=== PATIENT | female | born 2000 | race Caucasian/White ===

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

== ENCOUNTER 2019-01-13 08:09 | Emergency (ER) | payer OTHER ==
[~2019-01-13] VITALS: Ht 162.6 cm; Wt 68.9 kg
[2019-01-13 08:36] VITALS: Ht 162.6 cm; Wt 68.9 kg
[2019-01-13 10:38] LABS: BASOPHIL % 0.2 % (0-2); PLATELET COUNT 247 x10^3mcL (130-400); RED CELL DISTRIBUTION WIDTH 13.6 % (11.5-14.5)
[2019-01-13 12:11] LABS: CARBON DIOXIDE 26.2 mmol/L (21-32); CHLORIDE SERUM 103 mmol/L (98-107); CREATININE SERUM 0.8 mg/dL (0.6-1.0); GFR1 > 60 mL/min; GLUCOSE SERUM 97 mg/dL (74-106); POTASSIUM SERUM 3.4 mmol/L (3.5-5.1); SODIUM SERUM 139 mmol/L (136-145)
[2019-01-13 12:12] LABS: ALKALINE PHOSPHATASE 86 U/L (46-116); ALT/SGPT 20 U/L (14-59); AST/SGOT 14 U/L (15-37); BILIRUBIN TOTAL 0.47 mg/dL (0.20-1.00); CALCIUM 9.7 mg/dL (8.5-10.1); TOTAL PROTEIN, SERUM 7.9 g/dL (6.4-8.2)
[2019-01-13 12:43] VITALS: BP 122/74
== END 2019-01-13 12:43 | disposition home or self-care (01) ==
LOC: ED 08:09
PROVIDERS: Emergency Medicine
DX: M54.5 Low back pain (principal); G89.29 Other chronic pain; R10.84 Generalized abdominal pain
CPT/HCPCS: 36415

== ENCOUNTER 2019-02-07 16:22 | Emergency (ER) | payer OTHER ==
[~2019-02-07] VITALS: Ht 162.6 cm; Wt 69.9 kg
[2019-02-07 16:29] VITALS: Ht 162.6 cm; Wt 69.9 kg
[2019-02-07 17:21] LABS: microscopic required? YES; urine erythrocyte 3+ (NEGATIVE)
[2019-02-07 18:18] VITALS: BP 130/78
== END 2019-02-07 18:18 | disposition home or self-care (01) ==
LOC: ED 16:22
PROVIDERS: Emergency Medicine
DX: L73.9 Follicular disorder, unspecified (principal)
CPT/HCPCS: 87491; 87591